=== PATIENT | male | born 1980 | race Caucasian/White ===

== ENCOUNTER → 2020-08-28 14:45 | Outpatient (BNVA) | payer OTHER, SELFPAY | PROVIDERS: Visit Provider Nurse Practitioner Family | DX: Z20.828 Contact with and (suspected) exposure to other viral communicable diseases (principal) | CPT/HCPCS: 87635 ==

== ENCOUNTER → 2022-08-09 12:42 | Outpatient (BNVA) | payer BC, SELFPAY | PROVIDERS: Visit Provider Emergency Medicine | DX: R68.89 Other general symptoms and signs (principal); Z20.822 Contact with and (suspected) exposure to COVID-19 | CPT/HCPCS: 87400; 87426 ==